=== PATIENT | female | born 1995 | race Caucasian/White ===

== ENCOUNTER 2016-08-07 06:57 | Day surgery (SDC) | payer MEDICAID ==
--- NOTE | 2016-07-13 15:20 | History and Physical Report ---
I last saw Ms. Conte in the office on 07/10/2016, in regard to her abdominal pain. Nica is a very pleasant 21-year-old female who was up at school in [place] and suffered from fairly significant epigastric and right subcostal pain. She states this was after eating greasy or fatty foods. She was quite nauseated with this. She was therefore seen in the ER which did reveal a normal white count. She did have sludge in her gallbladder with no signs of acute cholecystitis. She states she has felt history of some biliary colic in the past when she has eating greasy or fatty foods. Her past medical history is significant for depression. PAST SURGICAL HISTORY: Denies. Currently takes fluoxetine, control pills, dicyclomine, and she has no known medical allergies. Socially denies use of tobacco or alcohol usage. On exam, height is 5 feet 6, weight is 200 pounds. She is afebrile. Vital signs are stable. Heart is regular. Lungs are clear. Abdomen is soft. Mild right subcostal tenderness. At this point I did review her imaging studies. Ultrasound did reveal gallbladder sludge without signs of acute cholecystitis. IMPRESSION: Recurrent biliary colic. We did discuss cholecystectomy versus medical management. She desired surgical intervention. The risks include bleeding, infection, ductal injury, possible conversion to open, postoperative bile leak and nonresolution of her symptoms and she understands this fully. This will be scheduled shortly. Jose F Melchor D.O. Date & Time JOB NUMBER: [] MTDD
[~2016-08-07 06:57] MED LIST: ACETAMINOPHEN 1000MG/100 ML PREMIX IV ONE; FAMOTIDINE 20MG TABLET PO ONE; MECLIZINE 25 MG TABLET PO ONE; METOCLOPRAMIDE 10 MG TABLET PO ONE
[2016-08-07] MEDS ORDERED: HYDROCODONE/APAP 5/325MG TABLET PO ONE (12:27)
[2016-08-07] MEDS ORDERED: BUPIVACAINE 0.25% W/EPI MPF 30ML VIAL IVP ONE (12:27)
[2016-08-07] MEDS ORDERED: ONDANSETRON HCL IV 4 MG/2 ML VIAL IVP ONE ×2 (12:27→14:00)
[2016-08-07] MEDS ORDERED: LIDOCAINE 2% MDV (20MG/ML) 20ML VIAL IV ONE (14:00)
[2016-08-07] MEDS ORDERED: KETOROLAC 30 MG/ML VIAL IVP ONE (14:00)
[2016-08-07] MEDS ORDERED: SUCCINYLCHOLINE 20 MG/ML 10ML IVP ONE (14:00)
[2016-08-07] MEDS ORDERED: MIDAZOLAM HCL 2MG/2ML VIAL IV ONE (14:00)
[2016-08-07] MEDS ORDERED: ROCURONIUM BROMIDE 50MG/5ML VIAL IV ONE (14:00)
[2016-08-07] MEDS ORDERED: SEVOFLURANE 250 ML INH ONE (14:00)
[2016-08-07] MEDS ORDERED: NEOSTIGMINE 1 MG/1 ML,10ML VIAL IV ONE (14:00)
[2016-08-07] MEDS ORDERED: GLYCOPYRROLATE 0.2 MG/ML ML IV ONE (14:00)
[2016-08-07] MEDS ORDERED: PROPOFOL 10 MG/ML VIAL IV ONE (14:00)
[2016-08-07] MEDS ORDERED: FENTANYL PF 100MCG/2ML VIAL IV ONE (14:00)
--- NOTE | 2016-08-07 17:00 | Operative Note ---
DATE OF SURGERY: 08/07/2016 Surgeon: Jose F Melchor DO Referring: Ayden Cantu MD, [facility] PREOPERATIVE DIAGNOSIS: Cholelithiasis with chronic cholecystitis. POSTOPERATIVE DIAGNOSIS: Cholelithiasis with chronic cholecystitis. OPERATION: LAPAROSCOPIC CHOLECYSTECTOMY. Indication: The patient is a 21-year-old female who is having ongoing right subcostal postprandial pain. Imaging studies do reveal gallbladder sludge. We did discuss cholecystectomy versus medical management. She desires surgical intervention. Risks include but not limited to bleeding, infection, duct injury , possible conversion to open, postoperative bile leak, and she understood this fully. PROCEDURE: After consent was signed, questions answered, she was taken to the operating room and placed in the supine position. General anesthesia was administered per Department of Anesthesia. Patient's abdomen was prepped and draped in the usual fashion. At this time, an adequate timeout was performed. She had received preoperative antibiotic. At this time, her abdomen was prepped and draped in the usual fashion. The infraumbilical region was anesthetized with a total of 2 mL of 0.25% Sensorcaine with epinephrine. A 2 cm infraumbilical incision made. This was carried down to the anterior rectus fascia. This was incised. Kishor clamps were placed on the fascial edges and brought up into the wound. Stay sutures of 0 Vicryl placed. Posterior rectus sheath was identified, incised and the peritoneal cavity was entered bluntly. At this time, a 10 mm blunt Yoselyn port was placed and adequate pneumoperitoneum established. Under direct visualization, an additional 5 mm epigastric and two 5 mm right subcostal ports were placed. The patient was rotated into a steep reverse Trendelenburg with rotation to the left. Gallbladder was identified. Our visualization was excellent. The gallbladder did retract in a cephalad and lateral direction, opening up the angle of Calot. There were dense omental adhesions anteriorly which were taken up bluntly, as well as with the Marcus harmonic. At this time, the hepatocystic triangle was thoroughly dissected out. The distal half of the gallbladder was released from the liver plate extending on rectal ductal space. The cystic duct and cystic artery was clearly identified, each one was circumferentially dissected free in a 360 degree fashion. The cystic artery was taken down using the Marcus harmonic. The cystic duct was triply clipped and cut in standard fashion. The gallbladder was taken off the liver bed with Marcus harmonic. At this time, this was extracted infraumbilically. The right upper quadrant was rechecked, found to be hemostatic, no bleeding, no bile leak and no bowel injury noted. Patient was leveled out and pneumoperitoneum was released. All ports were removed. The fascia was closed with 0 Vicryl in a [id number] fashion. The skin in all 4 ports closed with 4-0 Vicryl. She was taken to recovery room in satisfactory condition. FINDINGS AT TIME OF SURGERY: Chronic cholecystitis. CC: AYDEN CANTU MD, FACP [facility]
== END 2016-08-07 10:20 | disposition home or self-care (01) ==
LOC: SUR 06:57
PROVIDERS: ATTEND Surgery
DX: K80.10 Calculus of gallbladder with chronic cholecystitis without obstruction (principal)
CPT/HCPCS: 81025; 47562; 00790; J1885; J2405; J3010; J0330; J2710